=== PATIENT | female | born 1955 | race Caucasian/White ===

== ENCOUNTER 2017-08-03 06:34 | Day surgery (SDC) | payer OTHER ==
[2017-08-03] MEDS: POLYMYXIN/BACITRACIN 1L IRRIG IRR
[2017-08-03] MEDS: BUPIVACAINE 0.25%/EPI (SDV) 30 ML INJ INJ
[~2017-08-03 06:34] MED LIST: ATROPINE 1 MG/10 ML SYRINGE IV; DEXAMETHASONE 4 MG/ML 1 ML INJ; DIPHENHYDRAMINE 50 MG INJ IV; EPHEDrine SULFATE 50 MG/5 ML SYG IV; FENTAnyl 50 MCG/ML VIAL; FENTAnyl 50 MCG/ML VIAL IV; GLYCOPYRROLATE 0.4 MG INJ; HYDROmorphONE (0.2 MG/ML) 10ML SYG IV; LABETALOL HCL 20MG INJ IV; LIDOCAINE 2% (SDV) 5 ML INJ; MEPERIDINE 25 MG INJ IV; MIDAZOLAM 1 MG/ML 2 ML INJ; MIDAZOLAM 1 MG/ML 2 ML INJ IV; NEOSTIGMINE 3 MG/3 ML SYRINGE; ONDANSETRON 4 MG INJ; OXYCODONE/ACETAMINOPHEN (5/325) TAB PO; PROPOFOL 20 ML; ROCURONIUM 50 MG INJ; SOD CHLORIDE 0.9% 1,000 ML IV; hydrALAzine 20 MG INJ IV; morphine (1 MG/ML) 10ML SYRINGE IV
[2017-08-03] MEDS ORDERED: GENTAMICIN 80 MG INJ (07:05)
[2017-08-03] MEDS ORDERED: POLYMYXIN/BACITRACIN 1L IRRIG (07:05)
[2017-08-03] MEDS: VANCOMYCIN 1 GM 250 ML IVPB (07:06)
[2017-08-03] MEDS ORDERED: EPINEPHrine 0.1 MG/ML SYG (07:12)
[2017-08-03 07:19] LABS: ADD MAN DIFF? NO
[2017-08-03 07:33] LABS: BASOPHILS % 0.4 % (0.0-2.0); EOSINOPHILS # 0.1 10^3/ul (0.0-0.5); EOSINOPHILS % 1.1 % (0.0-7.0); HEMATOCRIT 41.9 % (37.0-47.0); HEMOGLOBIN 13.2 g/dl (12.0-16.0); LYMPHOCYTES # 2.3 10^3/ul (0.8-2.9); LYMPHOCYTES % 29.2 % (15.0-51.0); MEAN CORPUSCULAR HEMOGLOBIN 24.9 pg (29.0-33.0); MEAN CORPUSCULAR HGB CONC 31.5 g/dl (32.0-37.0); MEAN CORPUSCULAR VOLUME 79.1 fl (82.0-101.0); MEAN PLATELET VOLUME 11.2 fl (7.4-10.4); MONOCYTE # 0.4 10^3/ul (0.3-0.9); MONOCYTES % 5.5 % (0.0-11.0); NEUTROPHIL # 5.1 10^3/ul (1.6-7.5); NEUTROPHILS % 63.7 % (39.0-77.0); PLATELET COUNT 250 10^3/UL (140-415); RED CELL DISTRIBUTION WIDTH 13.1 % (11.5-14.5)
[2017-08-03] MEDS ORDERED: SODIUM CL BACTERIOSTATIC 30 ML INJ (07:49)
[2017-08-03 07:52] LABS: ALANINE AMINOTRANSFERASE 67 IU/L (13-69); ALBUMIN 4.4 g/dl (3.3-4.9); ALBUMIN/GLOBULIN RATIO 1.07; ALKALINE PHOSPHATASE 116 IU/L (42-121); ANION GAP 16 (8-16); ASPARTATE AMINO TRANSFERASE 40 IU/L (15-46); BILIRUBIN,INDIRECT 0.5 mg/dl (0-1.1); BILIRUBIN,TOTAL 0.5 mg/dl (0.2-1.3); CARBON DIOXIDE 27 mmol/L (21-31); CHLORIDE 106 mmol/L (97-110); GLUCOSE 176 mg/dl (70-220); TOTAL PROTEIN 8.5 g/dl (6.1-8.1)
[2017-08-03 07:54] LABS: BLOOD UREA NITROGEN 17 mg/dl (7-20); CALCIUM 9.2 mg/dl (8.4-10.2); CREATININE 0.57 mg/dl (0.44-1.00); POTASSIUM 4.5 mmol/L (3.5-5.1); SODIUM 144 mmol/L (135-144)
[2017-08-03] MEDS ORDERED: morphine 2 MG INJ IV (08:00)
[2017-08-03] MEDS ORDERED: HYDROCODONE/APAP (5/325) TAB PO (08:00)
[2017-08-03] MEDS ORDERED: ONDANSETRON 4 MG INJ IV (08:00)
[2017-08-03] MEDS ORDERED: SUCCINYLCHOLINE CHLORIDE 100 MG/5 ML SYG IV (08:03)
[2017-08-03 08:23] LABS: INR 0.99; PROTIME 13.2 Sec (11.9-14.9)
[2017-08-03] MEDS: BUPIVACAINE LIPOSOME/PF 266 MG/20 ML VIAL INFIL (09:30)
[2017-08-03] MEDS: ONDANSETRON 4 MG INJ IV (11:25)
[2017-08-03] MEDS: FENTAnyl 50 MCG/ML VIAL IV ×2 (11:25→11:32)
[2017-08-03] MEDS: OXYCODONE/ACETAMINOPHEN (5/325) TAB PO (11:45)
== END 2017-08-03 17:08 | disposition home or self-care (01) ==
LOC: SDS 06:34
DX: N60.11 Diffuse cystic mastopathy of right breast (principal); N62 Hypertrophy of breast; D24.2 Benign neoplasm of left breast; I10 Essential (primary) hypertension; E11.9 Type 2 diabetes mellitus without complications
CPT/HCPCS: 19301; 71045; 80053; 82962; 85025; 85610; 85730; 88307